=== PATIENT | female | born 1955 ===

== ENCOUNTER 2017-06-18 10:37 | Day surgery (SDC) | payer OTHER ==
[2017-06-18] MEDS ORDERED: Lactated Ringer's 500 ML IV ONE (11:28)
[2017-06-18] MEDS ORDERED: Propofol 10 mg/ml Inj (20 ML) ONE (13:49)
[2017-06-18 14:28] VITALS: TEMP 97
[2017-06-18 14:44] VITALS: BP 128/75; PULSE 70; RESP 14; O2SAT 99
== END 2017-06-18 15:12 | disposition home or self-care (01) ==
LOC: H.ENDO 10:37
PROVIDERS: ATTEND Internal Medicine Gastroenterology
DX: Z86.010 Personal history of colon polyps (principal); K64.0 First degree hemorrhoids; K63.89 Other specified diseases of intestine; K57.30 Diverticulosis of large intestine without perforation or abscess without bleeding
CPT/HCPCS: 45380; 82948; 88305; J2001; J2704; J7120